=== PATIENT | female | born 1985 | race Caucasian/White ===

== ENCOUNTER 2024-04-02 09:47 | Outpatient (CLI) | payer OTHER | END 2024-04-02 09:48 | disposition home or self-care (01) | LOC: SCSRAD 09:47 | PROVIDERS: ATTEND Family Medicine | DX: M25.552 Pain in left hip (principal) ==

== ENCOUNTER 2024-05-12 14:40 | Outpatient (CLI) | payer OTHER | END 2024-05-12 14:41 | disposition home or self-care (01) | LOC: SCSMRI 14:40 | PROVIDERS: ATTEND Family Medicine Sports Medicine | DX: M25.552 Pain in left hip (principal); M51.379 Other intervertebral disc degeneration, lumbosacral region without mention of lumbar back pain or lower extremity pain; R60.9 Edema, unspecified ==